=== PATIENT | female | born 1970 | race Caucasian/White ===

== ENCOUNTER 2019-10-13 14:59 | Emergency (ER) | payer OTHER ==
[~2019-10-13] VITALS: Ht 167.6 cm; Wt 76.7 kg
== END 2019-10-13 17:53 | disposition home or self-care (01) ==
LOC: ER 14:59
DX: S40.212A Abrasion of left shoulder, initial encounter (principal); S60.512A Abrasion of left hand, initial encounter; S00.81XA Abrasion of other part of head, initial encounter; W18.39XA Other fall on same level, initial encounter; Y93.89 Activity, other specified; Y92.89 Other specified places as the place of occurrence of the external cause; Y99.8 Other external cause status